=== PATIENT | female | born 1995 | race Caucasian/White ===

== ENCOUNTER 2017-10-19 10:43 | Emergency (ER) | payer OTHER ==
[2017-10-19] MEDS ORDERED: NAPROXEN 375 MG TABLET PO ONE (11:05)
[2017-10-19] MEDS ORDERED: PROCHLORPERAZINE MALEATE 5 MG TABLET PO ONE (11:05)
[2017-10-19] MEDS ORDERED: DIPHENHYDRAMINE HCL 25 MG CAPSULE PO ONE (11:05)
--- NOTE | 2017-10-19 11:08 | ER Document Report ---
ED Medical Screen (RME) - General Chief Complaint: Headache Stated Complaint: BACK NECK PAIN Time Seen by Provider: 10/19/17 10:58 Notes: 22-year-old female patient reports onset about 5 days ago of a mild headache that she noticed developing one afternoon. It has slowly worsened throughout the week. Yesterday her daughter jumped on her back and after that the headache got much worse. She has pain in the upper back shoulders and neck with temporal and forehead discomfort. She took 2 extra strength Tylenol yesterday that helped a little and early this morning when she was awake took 1 and was able to sleep some. She went to an urgent care that did flu testing, testing, and sent her to the emergency room possibly to rule out meningitis. Posterior cervical muscles are quite tender, forehead muscles are little tender. Bilateral trapezius muscles are tender. Putting her chin on her chest causes her back to hurt where her daughter jumped on her and increases the discomfort in the posterior cervical muscles and over the spinous processes. There is no nuchal rigidity. She will be given a dose of Compazine, Benadryl, and Naprosyn while waiting to be seen. I have greeted and performed a rapid initial assessment of this patient. A comprehensive ED assessment and evaluation of the patient, analysis of test results and completion of the medical decision making process will be conducted by additional ED providers. TRAVEL OUTSIDE OF THE [place] IN LAST 30 DAYS: No - Related Data Allergies/Adverse Reactions: peanut Allergy (Verified 10/19/17 10:48) Penicillins Allergy (Verified 10/19/17 10:48) Past Medical History - Social History Chew tobacco use (# tins/day): No Frequency of alcohol use: None Drug Abuse: None Renal/ Medical History: Denies: Hx Peritoneal Dialysis Past Surgical History: Reports: Hx Appendectomy, Hx Cholecystectomy Physical Exam - Vital signs Vitals: Temp Pulse Resp BP Pulse Ox 98.0 F 87 18 121/75 100 10/19/17 10:51 10/19/17 10:51 10/19/17 10:51 10/19/17 10:51 10/19/17 10:51 Course - Vital Signs Vital signs: Temp Pulse Resp BP Pulse Ox 98.0 F 87 18 121/75 100 10/19/17 10:51 10/19/17 10:51 10/19/17 10:51 10/19/17 10:51 10/19/17 10:51
--- NOTE | 2017-10-19 11:19 | ER Document Report ---
ED General - General Chief Complaint: Headache Stated Complaint: BACK NECK PAIN Time Seen by Provider: 10/19/17 10:58 Mode of Arrival: Ambulatory Information source: Patient Notes: Patient presents emergency department with complaints and back neck and head pain. She reports migraine for the past 5 days. Reports past medical history of migraines as a child. Reports she has been taking Tylenol and has relieved some relief but the pain comes back. C/O low back and neck pain but this started after her child jumped on her back. She has been very nauseated.. She went to urgent care before coming to the ED. She had a negative flu test, received zofran IM. TRAVEL OUTSIDE OF THE [place] IN LAST 30 DAYS: No - HPI Onset: Other - 5 weeks Onset/Duration: Persistent Quality of pain: Achy, Pressure Severity: Severe Pain Level: 5 Associated symptoms: Nausea, Vomiting Exacerbated by: Denies Relieved by: Denies Similar symptoms previously: Yes Recently seen / treated by doctor: Yes - Related Data Allergies/Adverse Reactions: peanut Allergy (Verified 10/19/17 10:48) Penicillins Allergy (Verified 10/19/17 10:48) Past Medical History - General Information source: Patient Last Menstrual Period: 10/11/17 - Social History Smoking Status: Never Smoker Cigarette use (# per day): No Chew tobacco use (# tins/day): No Frequency of alcohol use: None Drug Abuse: None Lives with: Family Family History: Reviewed & Not Pertinent Patient has suicidal ideation: No Patient has homicidal ideation: No Pulmonary Medical History: Reports: Hx Asthma - as a child Neurological Medical History: Reports: Hx Migraine - as a child Renal/ Medical History: Denies: Hx Peritoneal Dialysis Past Surgical History: Reports: Hx Appendectomy, Hx Cholecystectomy Review of Systems - Review of Systems Notes: Review HPI for review of systems., All other systems negative Physical Exam - Vital signs Vitals: Temp Pulse Resp BP Pulse Ox 98.0 F 87 18 121/75 100 10/19/17 10:51 10/19/17 10:51 10/19/17 10:51 10/19/17 10:51 10/19/17 10:51 - Notes Notes: PHYSICAL EXAMINATION: GENERAL: Well-appearing and in no acute distress nontoxic looking HEAD: Atraumatic, normocephalic. EYES: Pupils equal round and reactive to light, extraocular movements intact, sclera anicteric, conjunctiva are normal. ENT: nares patent, oropharynx clear without exudates. Moist mucous membranes. NECK: Normal range of motion, supple without lymphadenopathy LUNGS: CTAB and equal. No wheezes rales or rhonchi. HEART: Regular rate and rhythm without murmurs BACK: C/O lower back midline pain, c/o neck sore, turns head side to side, chin to chest without problems. ABDOMEN: Soft, no tenderness. No guarding, no rebound EXTREMITIES: Normal range of motion, no pitting edema. No cyanosis. NEUROLOGICAL: Cranial nerves grossly intact. Normal sensory/motor exams. no weakness, no obvious neuro deficit PSYCH: Normal mood, normal affect. SKIN: Warm, Dry, normal turgor, no rashes or lesions noted Course - Re-evaluation Re-evalutation: 10/19/17 12:37 Patient reports medications that she was given p.o. have helped other symptoms except she has pressure on bilateral temples. She reports nausea is gone. 10/19/17 13:29 Patient reports her headache pressure is almost all the way gone. She says she barely feels it. Reports all other symptoms are gone. Patient was instructed on the importance of follow-up with primary care provider within the next few days. She was also instructed to return here for any concerns. She verbalized understanding tall instructions. Patient is a dependent and does have follow-up. - Vital Signs Vital signs: Temp Pulse Resp BP Pulse Ox 98.0 F 69 16 99/60 L 98 10/19/17 13:47 10/19/17 13:47 10/19/17 13:47 10/19/17 13:47 10/19/17 13:47 Discharge - Discharge Clinical Impression: Nausea, BACK AND NECK PAIN Headache Qualifiers: Headache type: unspecified Headache chronicity pattern: unspecified pattern Intractability: not intractable Qualified Code(s): R51 - Headache Condition: Stable Disposition: HOME, SELF-CARE Instructions: Antinausea Medication ([facility]), Toradol Injection ([facility]) Additional Instructions: *You have been evaluated for a headache, nec/back pain, nausea *Take medication as prescribed for your nausea *Take Ibuprofen as indicated for a headache *Follow up with your primary care provider within 3 days *Return to ED for worsening condition, changes, needs *Return to ED if not better in 24 hours Referrals: KYLE AMBROCIO MD [Primary Care Provider] - Follow up in 3-5 days
[2017-10-19] MEDS ORDERED: KETOROLAC TROMETHAMINE 60 MG/2 ML SDV IM ONE (12:16)
[2017-10-19] MEDS ORDERED: ONDANSETRON ODT 4 MG TAB (6 TAB/ER DISP) PO PRN (13:29)
[2017-10-19 13:49] VITALS: BP 99/60
== END 2017-10-19 13:52 | disposition home or self-care (01) ==
LOC: ER 10:43
DX: R51 Headache (principal); M54.2 Cervicalgia; R11.0 Nausea; Z90.49 Acquired absence of other specified parts of digestive tract; Z88.0 Allergy status to penicillin; Z91.010 Allergy to peanuts
CPT/HCPCS: 99284; 96372; J1885; J3490; S0183

== ENCOUNTER 2018-01-08 11:33 | Emergency (ER) | payer OTHER ==
--- NOTE | 2018-01-08 12:41 | ER Document Report ---
ED Medical Screen (RME) - General Chief Complaint: Back Pain Stated Complaint: BACK PAIN, WEAKNESS Mode of Arrival: Ambulatory Information source: Patient Notes: 22 y.o female presents to the ED with generalized weakness and back pain. Pt reports that she cannot hold herself up when she walks and that she is having trouble picking things up and is shaky. 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 Pt reports that she initially thought she had pulled a muscle but this morning when she woke up her pain had significantly worsened. Pt describes her back pain as a burning. Pt denies any known thyroid issues. She denies any recent changes in weight. She reports that her mother has Graves' disease. Pt's PCP is Kyle Saavedra in [place]. I have greeted and performed a rapid initial assessment of the patient. A comprehensive ED assessment and evaluation of the patient, analysis of test results, and completion of the medical decision making process will be conducted by additional ED providers. PHYSICAL EXAM: Cardiovascular: RRR, no murmur. Respiratory: CTAB Abdominal: No distension. Back: Minor LT CVA tenderness to percussion TRAVEL OUTSIDE OF THE [place] IN LAST 30 DAYS: No - Related Data Allergies/Adverse Reactions: peanut Allergy (Verified 01/08/18 11:36) Penicillins Allergy (Verified 01/08/18 11:36) Past Medical History - Social History Chew tobacco use (# tins/day): No Frequency of alcohol use: None Pulmonary Medical History: Reports: Hx Asthma - as a child Neurological Medical History: Reports: Hx Migraine - as a child Renal/ Medical History: Denies: Hx Peritoneal Dialysis Past Surgical History: Reports: Hx Appendectomy, Hx Cholecystectomy Physical Exam - Vital signs Vitals: Temp Pulse BP Pulse Ox 98.1 F 98 105/67 99 01/08/18 11:38 01/08/18 11:38 01/08/18 11:38 01/08/18 11:38 Course - Vital Signs Vital signs: Temp Pulse Resp BP Pulse Ox 98.1 F 98 105/67 99 01/08/18 11:38 01/08/18 11:38 01/08/18 11:38 01/08/18 11:38 Doctor's Discharge - Discharge Referrals: KYLE AMBROCIO MD [Primary Care Provider] - Follow up as needed Scribe Documentation - Scribe Written by Tyrone:: Tyrone King 01/08/18 1562 acting as scribe for :: Ant
--- NOTE | 2018-01-08 13:20 | ER Document Report ---
ED General - General Chief Complaint: Back Pain Stated Complaint: BACK PAIN, WEAKNESS Time Seen by Provider: 01/08/18 12:36 Mode of Arrival: Ambulatory Information source: Patient Notes: 22-year-old female presents emergency department complaints of generalized weakness, fatigue, back pain. Patient states that she has been having the back pain for the last week. She describes the pain as an aching/burning sensation located in the mid back. Patient states that initially when the pain started she thought she pulled a muscle. She states that she went and saw a chiropractor and had x-rays done. The x-rays were negative. Patient states that the chiropractic work has not been helping with her back pain. She states that she has a history of ureter reflux and is concerned that maybe she has a bladder infection that is spread into the kidneys. Also has a history of kidney stones. Patient says her stones usually present abruptly where as this pain has gradually been worsening. Patient denies any dysuria, hematuria, any increased urgency, increased frequency, vaginal bleeding, vaginal discharge. No numbness, tingling, lower extremity weakness, bowel or bladder incontinence. Patient is able to ambulate despite the pain. She states that she tried to get in with her primary care physician today but they were not open. TRAVEL OUTSIDE OF THE [place] IN LAST 30 DAYS: No - HPI Onset: Other - 2 weeks Onset/Duration: Gradual Quality of pain: Achy, Throbbing Severity: Moderate Associated symptoms: Weakness Exacerbated by: Denies Relieved by: Denies Similar symptoms previously: No Recently seen / treated by doctor: No - Related Data Allergies/Adverse Reactions: peanut Allergy (Verified 01/08/18 11:36) Penicillins Allergy (Verified 01/08/18 11:36) Past Medical History - General Information source: Patient - Social History Smoking Status: Never Smoker Chew tobacco use (# tins/day): No Frequency of alcohol use: None Family History: Reviewed & Not Pertinent Patient has suicidal ideation: No Patient has homicidal ideation: No Pulmonary Medical History: Reports: Hx Asthma - as a child Neurological Medical History: Reports: Hx Migraine - as a child Renal/ Medical History: Denies: Hx Peritoneal Dialysis Past Surgical History: Reports: Hx Appendectomy, Hx Cholecystectomy Review of Systems - Review of Systems Constitutional: Malaise, Weakness EENT: No symptoms reported Cardiovascular: No symptoms reported Respiratory: No symptoms reported Gastrointestinal: No symptoms reported Genitourinary: No symptoms reported Female Genitourinary: No symptoms reported Musculoskeletal: Back pain Skin: No symptoms reported Hematologic/Lymphatic: No symptoms reported Neurological/Psychological: No symptoms reported -: Yes All other systems reviewed and negative Physical Exam - Vital signs Vitals: Temp Pulse BP Pulse Ox 98.1 F 98 105/67 99 01/08/18 11:38 01/08/18 11:38 01/08/18 11:38 01/08/18 11:38 Interpretation: Normal - Notes Notes: PHYSICAL EXAMINATION: GENERAL: Well-appearing, well-nourished and in no acute distress. HEAD: Atraumatic, normocephalic. EYES: Pupils equal round and reactive to light, extraocular movements intact, conjunctiva are normal. ENT: Nares patent, oropharynx clear without exudates. Moist mucous membranes. NECK: Normal range of motion, supple without lymphadenopathy LUNGS: Breath sounds clear to auscultation bilaterally and equal. No wheezes rales or rhonchi. HEART: Regular rate and rhythm without murmurs ABDOMEN: Soft, nontender, nondistended abdomen. No guarding, no rebound. No masses appreciated. Female : deferred Musculoskeletal: Normal range of motion, no pitting or edema. No cyanosis. Bilateral lumbar paraspinal tenderness to palpation. NEUROLOGICAL: Cranial nerves grossly intact. Normal speech, normal gait. Normal sensory, motor exams. PSYCH: Normal mood, normal affect. SKIN: Warm, Dry, normal turgor, no rashes or lesions noted. Course - Re-evaluation Re-evalutation: 01/08/18 13:20 Patient is able to walk, walk on heels, walk on toes, squat in the ED. Denies numbness, tingling, bowel or bladder incontinence. Normal muscle strength 5/5 in the lower extremities. 01/08/18 15:29 Labs and imaging obtained. Labs are unremarkable. UA appears contaminated. Lots of bacteria and squamous cells. No nitrates or leukocyte esterase. CT does not show a stone or signs of pyelonephritis. Patient likely has muscle related symptoms. I will discharge the patient home with prescription for muscle relaxant. Patient told to take the medication as directed, to follow up with her PCP this week, and to return for worsening symptoms. Patient is agreeable with the plan of care. - Vital Signs Vital signs: Temp Pulse Resp BP Pulse Ox 98.1 F 98 105/67 99 01/08/18 11:38 01/08/18 11:38 01/08/18 11:38 01/08/18 11:38 - Laboratory Result Diagrams: 01/08/18 14:05 01/08/18 14:05 Laboratory results interpreted by me: 01/08/18 14:30 Ur Leukocyte Esterase TRACE H Discharge - Discharge Clinical Impression: Lumbar strain Qualifiers: Encounter type: initial encounter Qualified Code(s): S39.012A - Strain of muscle, fascia and tendon of lower back, initial encounter Condition: Good Disposition: HOME, SELF-CARE Instructions: Muscle Strain ([facility]), Low Back Pain ([facility]) Prescriptions: Cyclobenzaprine HCl [Flexeril 10 mg Tablet] 10 mg PO TIDP PRN #15 tab PRN Reason: Referrals: KYLE AMBROCIO MD [Primary Care Provider] - Follow up as needed
[2018-01-08 14:15] LABS: ABSOLUTE BASOPHILS # (AUTO) 0.1 10^3/uL (0.0-0.2); ABSOLUTE EOSINOPHILS # (AUTO) 0.1 10^3/uL (0.0-0.6); ABSOLUTE LYMPHOCYTES (AUTO) 2.1 10^3/uL (0.5-4.7); ABSOLUTE MONOCYTES (AUTO) 0.4 10^3/uL (0.1-1.4); ABSOLUTE NEUT (AUTO) 3.4 10^3/uL (1.7-8.2); BASOPHILS % (AUTO) 0.9 % (0-2); EOSINOPHILS % (AUTO) 0.9 % (0-6); HEMATOCRIT 42.7 % (36.0-47.0); HEMOGLOBIN 14.3 g/dL (12.0-15.5); LYMPHOCYTES % (AUTO) 34.7 % (13-45); MEAN CORPUSCULAR HEMOGLOBIN 29.6 pg (27.0-33.4); MEAN CORPUSCULAR HGB CONC 33.5 g/dL (32.0-36.0); MEAN CORPUSCULAR VOLUME 88 fl (80-97); MONOCYTES % (AUTO) 7.3 % (3-13); PLATELET COUNT 267 10^3/uL (150-450); RED BLOOD COUNT 4.84 10^6/uL (3.72-5.28); RED CELL DISTRIBUTION WIDTH 13.3 % (11.5-14.0); SEGMENTED NEUTROPHILS % (AUTO) 56.2 % (42-78); TOTAL CELLS COUNTED % (AUTO) 100 %
[2018-01-08 14:34] LABS: ALANINE AMINOTRANSFERASE 20 U/L (9-52); ALBUMIN 4.8 g/dL (3.5-5.0); ALKALINE PHOSPHATASE 56 U/L (38-126); ANION GAP 10 (5-19); ASPARTATE AMINO TRANSFERASE 19 U/L (14-36); BILIRUBIN,DIRECT 0.3 mg/dL (0.0-0.4); BILIRUBIN,TOTAL 0.8 mg/dL (0.2-1.3); BLOOD UREA NITROGEN 10 mg/dL (7-20); CALCIUM 9.7 mg/dL (8.4-10.2); CARBON DIOXIDE 26 mmol/L (22-30); CHLORIDE 107 mmol/L (98-107); GLUCOSE 81 mg/dL (75-110); POTASSIUM 4.8 mmol/L (3.6-5.0); SODIUM 143.1 mmol/L (137-145)
[2018-01-08 14:48] LABS: APPEARANCE,URINE SLIGHTLY-CLOUDY; BILIRUBIN,URINE NEGATIVE (NEGATIVE); COLOR,URINE YELLOW; GLUCOSE, URINE NEGATIVE (NEGATIVE); KETONES,URINE NEGATIVE (NEGATIVE); LEUKOCYTE ESTERASE,URINE TRACE (NEGATIVE); NITRITE,URINE NEGATIVE (NEGATIVE); PROTEIN,URINE NEGATIVE (NEGATIVE); URINE SPECIFIC GRAVITY 1.017; UROBILINOGEN,URINE NEGATIVE mg/dL (<2.0)
[2018-01-08 14:50] LABS: FREE T4 (FREE THYROXINE) 0.82 ng/dL (0.78-2.19)
[2018-01-08 15:04] LABS: THYROID STIMULATING HORMONE 1.67 uIU/mL (0.47-4.68)
--- NOTE | 2018-01-08 15:23 | RADIOLOGY REPORT (SQ) ---
EXAM DESCRIPTION: CT ABD/PELVIS NO ORAL OR IV COMPLETED DATE/TIME: 01/08/2018 3:10 pm REASON FOR STUDY: left flank pain COMPARISON: None. TECHNIQUE: CT scan of the abdomen and pelvis performed without intravenous or oral contrast. Images reviewed with lung, soft tissue, and bone windows. Reconstructed coronal and sagittal MPR images revi ewed. All images stored on PACS. All CT scanners at this facility use dose modulation, iterative reconstruction, and/or weight based d osing when appropriate to reduce radiation dose to as low as reasonably achievable (ALARA). [facility]: Dose Right [facility]: CareDose [facility]: Dose Right [facility]: Teradose 4D [facility]: Smart [facility] RADIATION DOSE: CT Rad equipment meets quality standard of care and radiation dose reduction techniq ues were employed. CTDIvol: 4.8 mGy. DLP: 231 mGy-cm.mGy. LIMITATIONS: None. FINDINGS: LOWER CHEST: No significant findings. No nodules or infiltrates. NON-CONTRASTED LIVER, SPLEEN, ADRENALS: Evaluation limited by lack of IV contrast. No identified sign ificant masses. PANCREAS: No masses. No peripancreatic inflammatory changes. GALLBLADDER: Surgically absent. RIGHT KIDNEY AND URETER: No suspicious masses. Assessment limited by lack of IV contrast. No signif icant calcifications. No hydronephrosis or hydroureter. LEFT KIDNEY AND URETER: No suspicious masses. Assessment limited by lack of IV contrast. No signifi cant calcifications. No hydronephrosis or hydroureter. AORTA AND RETROPERITONEUM: No aneurysm. No retroperitoneal masses or adenopathy. BOWEL AND PERITONEAL CAVITY: No obvious masses or inflammatory changes. No free fluid. APPENDIX: Not visualized. PELVIS, BLADDER, AND ABDOMINAL WALL:No abnormal masses. No free fluid. Bladder normal. BONES: No significant findings. OTHER: No other significant finding. IMPRESSION: NO SIGNIFICANT OR ACUTE PROCESS IN THE ABDOMEN OR PELVIS. COMMENT: Quality ID # [id number]: Final reports with documentation of one or more dose reduction techniques (e.g., Automated exposure control, adjustment of the mA and/or kV according to patient size, use of iterative reconstruction technique) TECHNICAL DOCUMENTATION: JOB ID: [id number] [employer]- All Rights Reserved Reading location - IP/workstation name: [email or web address]
[2018-01-08 16:07] VITALS: BP 136/98
== END 2018-01-08 16:08 | disposition home or self-care (01) ==
LOC: ER 11:33
DX: S39.012A Strain of muscle, fascia and tendon of lower back, initial encounter (principal); X58.XXXA Exposure to other specified factors, initial encounter; R53.1 Weakness; R53.83 Other fatigue; M54.9 Dorsalgia, unspecified; Z87.442 Personal history of urinary calculi; Z87.448 Personal history of other diseases of urinary system; Z88.0 Allergy status to penicillin
CPT/HCPCS: 36415; 74176; 80053; 81001; 84439; 84443; 84703; 85025; 99284

== ENCOUNTER 2018-09-02 14:48 | Emergency (ER) | payer OTHER ==
[2018-09-02 15:00] VITALS: BP 115/70
--- NOTE | 2018-09-02 15:23 | ER Document Report ---
ED GI/ - General Chief Complaint: Pelvic Pain Stated Complaint: PELVIC PAIN Time Seen by Provider: 09/02/18 15:09 Primary Care Provider: KYLE AMBROCIO MD [Primary Care Provider] - Follow up as needed Notes: Chief complaint: History of complain:( obtained from----patient) 23 years old female , 7 weeks presents today with abdominal pain cramps with a history of constipation. Denies any vagina discharge or bleeding. Denies any dysuria frequency urgency. Denies any other constitutional symptoms Onset: As above Duration: Last few days Severity: Mild to moderate Quality: Crampy Context: Unknown Exacerbating factor and relieving factors: None REVIEW OF SYSTEMS: CONSTITUTIONAL : Denies fever, chills, or sweats. Denies recent illness. EENT: Denies eye, ear, throat, or mouth pain or symptoms. Denies nasal or sinus congestion or discharge. Denies throat, tongue, or mouth swelling or difficulty swallowing. CARDIOVASCULAR: Denies chest pain. Denies palpitations or racing or irregular heart beat. Denies ankle edema. RESPIRATORY: Denies cough, cold, or chest congestion. Denies shortness of breath, difficulty breathing, or wheezing. GASTROINTESTINAL: Denies distention. Denies nausea, vomiting, or diarrhea. Denies blood in vomitus, stools, or per rectum. Denies black, tarry stools. Denies constipation. GENITOURINARY: Denies difficulty urinating, painful urination, burning, frequency, blood in urine, or discharge. FEMALE GENITOURINARY: Denies vaginal bleeding, heavy or abnormal periods, irregular periods. Denies vaginal discharge or odor. MUSCULOSKELETAL: Denies back or neck pain or stiffness. Denies joint pain or swelling. SKIN: Denies rash, lesions or sores. HEMATOLOGIC : Denies easy bruising or bleeding. LYMPHATIC: Denies swollen, enlarged glands. NEUROLOGICAL: Denies confusion or altered mental status. Denies passing out or loss of consciousness. Denies dizziness or lightheadedness. Denies headache. Denies weakness or paralysis or loss of use of either side. Denies problems with gait or speech. Denies sensory loss, numbness, or tingling. Denies seizures. PSYCHIATRIC: Denies anxiety or stress. Denies depression, suicidal ideation, or homicidal ideation. ALL OTHER SYSTEMS REVIEWED AND NEGATIVE. PHYSICAL EXAMINATION: GENERAL: Well-appearing, well-nourished and in no acute distress. HEAD: Atraumatic, normocephalic. EYES: Pupils equal round and reactive to light, extraocular movements intact, conjunctiva are normal. ENT: Nares patent, oropharynx clear without exudates. Moist mucous membranes. NECK: Normal range of motion, supple without lymphadenopathy LUNGS: Breath sounds clear to auscultation bilaterally and equal. No wheezes rales or rhonchi. HEART: Regular rate and rhythm without murmurs ABDOMEN: Soft, nontender, nondistended abdomen. No guarding, no rebound. No masses appreciated. Examination of genitals-deferred Musculoskeletal: Normal range of motion, no pitting or edema. No cyanosis. NEUROLOGICAL: Cranial nerves grossly intact. Normal speech, normal gait. Normal sensory, motor exams PSYCH: Normal mood, normal affect. SKIN: Warm, Dry, normal turgor, no rashes or lesions noted. Dictation was performed using [employer] voice recognition software TRAVEL OUTSIDE OF THE [place] IN LAST 30 DAYS: No - HPI Notes: 09/02/18 15:22 Dictated - Related Data Allergies/Adverse Reactions: peanut Allergy (Verified 09/02/18 15:06) Penicillins Allergy (Verified 09/02/18 15:06) Past Medical History - General Last Menstrual Period: 07/14/18 - Social History Smoking Status: Never Smoker Chew tobacco use (# tins/day): No Frequency of alcohol use: None Drug Abuse: None Family History: Reviewed & Not Pertinent Patient has suicidal ideation: No Patient has homicidal ideation: No Pulmonary Medical History: Reports: Hx Asthma - as a child Neurological Medical History: Reports: Hx Migraine - as a child Renal/ Medical History: Denies: Hx Peritoneal Dialysis Past Surgical History: Reports: Hx Appendectomy, Hx Cholecystectomy Review of Systems - Review of Systems Notes: Dictated Physical Exam - Vital signs Vitals: Temp Pulse Resp BP Pulse Ox 98.5 F 87 14 115/70 100 09/02/18 15:00 09/02/18 15:00 09/02/18 15:00 09/02/18 15:00 09/02/18 15:00 - Notes Notes: Dictated Course - Vital Signs Vital signs: Temp Pulse Resp BP Pulse Ox 98.5 F 87 14 115/70 100 09/02/18 15:00 09/02/18 15:00 09/02/18 15:00 09/02/18 15:00 09/02/18 15:00 - Laboratory Laboratory results interpreted by me: 09/02/18 15:30 Beta HCG, Quant 10992.00 H - Diagnostic Test Radiology reviewed: Reports reviewed - Living intrauterine of 6 weeks and 1 day. Discharge - Discharge Clinical Impression: Constipation by delayed colonic transit Abdominal pain Qualifiers: Abdominal location: generalized Qualified Code(s): R10.84 - Generalized abdominal pain Qualifiers: Weeks of gestation: less than 8 weeks Qualified Code(s): Z3A.01 - Less than 8 weeks gestation of Condition: Fair Disposition: HOME, SELF-CARE Instructions: Bulk Laxatives, Pelvic Pain in and Round Ligament Pain ([facility]) Referrals: KYLE AMBROCIO MD [Primary Care Provider] - Follow up as needed
[2018-09-02 16:19] LABS: APPEARANCE,URINE CLEAR; BILIRUBIN,URINE NEGATIVE (NEGATIVE); COLOR,URINE STRAW; GLUCOSE, URINE NEGATIVE (NEGATIVE); KETONES,URINE NEGATIVE (NEGATIVE); LEUKOCYTE ESTERASE,URINE NEGATIVE (NEGATIVE); NITRITE,URINE NEGATIVE (NEGATIVE); PROTEIN,URINE NEGATIVE (NEGATIVE); URINE SPECIFIC GRAVITY 1.003; UROBILINOGEN,URINE NEGATIVE mg/dL (<2.0)
--- NOTE | 2018-09-02 16:53 | RADIOLOGY REPORT (SQ) ---
EXAM DESCRIPTION: U/S OB TRANSVAGINAL W/O DOP COMPLETED DATE/TIME: 09/02/2018 4:39 pm REASON FOR STUDY: Abdominal pain and COMPARISON: None. TECHNIQUE: Endovaginal static and realtime grayscale images acquired of the pelvis. Additional selec helio spectral and color Doppler images recorded. All images stored on PACs. bHCG: Not available CLINICAL DATES: Last menses 07/14/2018 LIMITATIONS: None. FINDINGS: FETUS: Single Living intrauterine . ULTRASOUND EGA: 6 weeks 1 day by crown-rump length ULTRASOUND DANNY: 04/27/2019 EFW: Not applicable less than 20 weeks. CRL: 4.2 mm FHR: Embryo cardiac activity seen at real-time scanning SURVEY: Too early to assess. AMNIOTIC FLUID: Adequate amount. PLACENTA: Not yet developed due to early gestation. SUBCHORIONIC BLEED: 3 mm subchorionic hemorrhage SIZE OF BLEED: 3 mm subchorionic hemorrhage UTERUS: No masses. No anomalies. Uterus is 8 x 6 x 4 cm in size CERVICAL LENGTH: 1.9 cm Closed. RIGHT ADNEXA: Normal ovary with normal vascular flow. Right ovary 2.9 x 3.1 x 2.2 cm in size with a 1.7 cm corpus luteum cyst No adnexal free fluid. No adnexal masses. LEFT ADNEXA: Normal ovary with normal vascular flow. Left ovary 2.6 x 1.9 x 1.2 cm in size. No adnexal free fluid. No adnexal masses. FREE FLUID: None. OTHER: No other significant finding. IMPRESSION: LIVING INTRAUTERINE . EGA 6 weeks 1 day Trimester of : First - 0 to 13 weeks. TECHNICAL DOCUMENTATION: JOB ID: [id number]- All Rights Reserved rev Reading location - IP/workstation name: [email or web address]
== END 2018-09-02 17:23 | disposition home or self-care (01) ==
LOC: ER 14:48
DX: O26.91 Pregnancy related conditions, unspecified, first trimester (principal); K59.01 Slow transit constipation; R10.2 Pelvic and perineal pain; R10.84 Generalized abdominal pain; Z3A.01 Less than 8 weeks gestation of pregnancy; Z88.0 Allergy status to penicillin; Z91.010 Allergy to peanuts
CPT/HCPCS: 36415; 76817; 81001; 84702; 99284

== ENCOUNTER 2018-09-07 22:44 | Emergency (ER) | payer OTHER ==
--- NOTE | 2018-09-08 00:18 | ER Document Report ---
ED General - General Chief Complaint: Constipation Stated Complaint: CONSTIPATION Time Seen by Provider: 09/07/18 23:35 Primary Care Provider: KYLE AMBROCIO MD [Primary Care Provider] - Follow up as needed Mode of Arrival: Ambulatory Information source: Patient TRAVEL OUTSIDE OF THE [place] IN LAST 30 DAYS: No - HPI Patient complains to provider of: Constipation Onset: Other - Last BM 9 days ago Onset/Duration: Gradual Quality of pain: Cramping Severity: Mild Pain Level: 1 Context: Early first trimester Associated symptoms: None Exacerbated by: Denies Relieved by: Denies Similar symptoms previously: No Recently seen / treated by doctor: No Notes: Patient is a 23-year-old female coming in today because of no bowel movement for 9 days. She has a long-standing history of of constipation. To make matters more complicated, she is in a first trimester as evidenced by her last visit here. She was not having any related complications. Sounds like she has been doing all of her safe treatments for constipation is not had a bowel movement in 9 days. Her doctor simply told her that she needed to come to the hospital - Related Data Allergies/Adverse Reactions: peanut Allergy (Verified 09/02/18 15:06) Penicillins Allergy (Verified 09/02/18 15:06) Past Medical History - General Information source: Patient - Social History Smoking Status: Never Smoker Chew tobacco use (# tins/day): No Frequency of alcohol use: None Drug Abuse: None Family History: Reviewed & Not Pertinent Patient has suicidal ideation: No Patient has homicidal ideation: No Pulmonary Medical History: Reports: Hx Asthma - as a child Neurological Medical History: Reports: Hx Migraine - as a child Renal/ Medical History: Denies: Hx Peritoneal Dialysis Past Surgical History: Reports: Hx Appendectomy, Hx Cholecystectomy Review of Systems - Review of Systems Notes: Constitutional: No fevers. No chills. EENT: No eye redness. No eye pain. No ear pain. No sore throat. Cardiovascular: No chest pain. No palpitations. Respiratory: No cough. No shortness of breath. No respiratory distress. Gastrointestinal: Positive for constipation. Positive for flatus Genitourinary: Atraumatic. No lesions. No pain. No discharge. Musculoskeletal: Atraumatic. No swelling. No deformities. Skin: No rash or lesions. Lymphatic: No swollen lymph nodes. Neurologic: No headache. No syncope. Psychiatric: No suicidal or homicidal ideation. Physical Exam - Vital signs Vitals: Temp Pulse Resp BP Pulse Ox 99.0 F 79 16 101/66 100 09/07/18 23:18 09/07/18 23:18 09/07/18 23:18 09/07/18 23:18 09/07/18 23:18 - Notes Notes: General: Well-developed, well-nourished. In no acute distress. Non-toxic appearing. Cardiac: Well-perfused. Regular rate and rhythm. No murmurs, rubs, or gallops. Pulmonary: No respiratory distress. No cyanosis. Bilateral lung fiels are clear to auscultation. Abdominal: Non-distended. Non-rigid. Bowel sounds are present in all 4 quadrants. Nontender to palpate. No fullness or tympany. No tinkling sounds. Rectal exam revealed no stool in the vault HEENT: Head is atraumatic. Conjunctivae not reddened. No tearing. PERRL. EOMI. Orbits atraumatic. No periorbital swelling or erythema. Oropharynx is without erythema, swelling, or exudates. Neck: Supple. No adenopathy. No meningismus. Dermatologic: Warm with good turgor. No rash. Atraumatic. Chest: Atraumatic. No chest wall tenderness to palpation. Musculoskeletal: Moves all extremities well. No range of motion deficits. no muscular or joint tenderness. No paraspinal muscle tenderness. no midline spinal tenderness or step-off. Genitourinary: Examination deferred Neurologic: No gross neurologic deficits. Psychiatric: Normal mood. Course - Re-evaluation Re-evalutation: 09/08/18 00:17 Patient does not have any clinical signs or symptoms of bowel obstruction. Her belly exam is benign. She is not have any tenderness. I do not feel a fecal impaction on rectal examination. We will give her encouragement to eat more leafy greens and to continue on her present course of increased exercise and increased water and fiber supplements [id number]. 09/08/18 00:19 She is having some nausea this related to . We will add Reglan. Wondering if this prokinetic might offer some help her constipation as well - Vital Signs Vital signs: Temp Pulse Resp BP Pulse Ox 99.0 F 79 16 101/66 100 09/07/18 23:18 09/07/18 23:18 09/07/18 23:18 09/07/18 23:18 09/07/18 23:18 Discharge - Discharge Clinical Impression: Nausea and vomiting in Constipation Qualifiers: Constipation type: unspecified constipation type Qualified Code(s): K59.00 - Constipation, unspecified Condition: Good Disposition: HOME, SELF-CARE Instructions: Antinausea Medication ([facility]), Constipation ([facility]), Reglan ([facility]) Prescriptions: Metoclopramide HCl [Reglan] 5 mg PO QIDP PRN #20 tablet PRN Reason: Referrals: KYLE AMBROCIO MD [Primary Care Provider] - Follow up tomorrow
[2018-09-08 00:30] VITALS: BP 107/64
== END 2018-09-08 00:30 | disposition home or self-care (01) ==
LOC: ER 22:44
DX: O99.611 Diseases of the digestive system complicating pregnancy, first trimester (principal); K59.00 Constipation, unspecified; O21.9 Vomiting of pregnancy, unspecified; Z3A.00 Weeks of gestation of pregnancy not specified; Z88.0 Allergy status to penicillin; Z91.010 Allergy to peanuts
CPT/HCPCS: 99283

== ENCOUNTER 2019-05-28 15:26 | Emergency (ER) | payer OTHER ==
[2019-05-28] MEDS ORDERED: METHYLPREDNISOLONE INJ 125 MG/2 ML SDV IV ONE (15:44)
[2019-05-28] MEDS ORDERED: NORMAL SALINE 500 ML IV ONE (15:44)
[2019-05-28] MEDS ORDERED: FAMOTIDINE INJ/PF 20 MG/2 ML SDV IV ONE (15:44)
--- NOTE | 2019-05-28 15:49 | ER Document Report ---
ED Medical Screen (RME) - General Stated Complaint: POSSIBLE ALLERGIC REACTION Time Seen by Provider: 05/28/19 15:37 Primary Care Provider: KYLE AMBROCIO MD [Primary Care Provider] - Follow up as needed TRAVEL OUTSIDE OF THE [place] IN LAST 30 DAYS: No - HPI Notes: 05/28/19 15:45 Patient is a 24-year-old female who presents complaining of allergic reaction possibly to the bowel prep that she was taking today. Reaction started a little over an hour ago. Patient states that she had an allergic reaction yesterday at [facility] possibly to the same bowel type of prep and was put in the ICU for monitoring and was discharged this morning. Patient states that she is never needed epinephrine. She did take Benadryl 50 mg an hour ago. Patient states that the Benadryl has helped with the facial flushing. She does have a rash that is started on her chest as well as scratchiness to her throat and lips, but she has not noticed any swelling. She is able to swallow without any difficulties and is breathing normally. She has not noticed any hoarseness. Reviewed with Dr. Carpenter: we will hold off on epi at this time, monitor, use if needed next I have treated and performed a rapid initial assessment of this patient. A comprehensive ED assessment and evaluation of the patient, analysis of test results and completion of medical decision making process will be conducted by additional ED providers. PHYSICAL EXAMINATION: GENERAL: Well-appearing, well-nourished and in no acute distress. A&Ox4. Answers questions appropriately. Mouth/throat: No evidence of angioedema or airway compromise. Lungs: CTAB with clear speech and no hoarseness. No retractions. Skin: There is an erythemic rash noted to her chest. Patient does appear a little flushed in the cheeks. - Related Data Allergies/Adverse Reactions: peanut Allergy (Verified 10/30/18 18:17) Penicillins Allergy (Verified 10/30/18 18:17) Past Medical History Pulmonary Medical History: Reports: Hx Asthma - as a child Neurological Medical History: Reports: Hx Migraine - as a child Renal/ Medical History: Denies: Hx Peritoneal Dialysis Past Surgical History: Reports: Hx Appendectomy, Hx Cholecystectomy Doctor's Discharge - Discharge Referrals: KYLE AMBROCIO MD [Primary Care Provider] - Follow up as needed
[2019-05-28] MEDS ORDERED: DIPHENHYDRAMINE HCL 50 MG/ML VIAL IV ONE (17:02)
--- NOTE | 2019-05-28 17:02 | ER Document Report ---
ED General - General Chief Complaint: Allergic Reaction Stated Complaint: POSSIBLE ALLERGIC REACTION Time Seen by Provider: 05/28/19 15:37 Primary Care Provider: KYLE AMBROCIO MD [Primary Care Provider] - Follow up as needed Mode of Arrival: Ambulatory Information source: Patient, Outside Facility Records Notes: Patient is a 24-year-old female who presents complaining of allergic reaction possibly to the bowel prep that she was taking today. Reaction started a little over an hour ago. Patient states that she had an allergic reaction yesterday at [facility] possibly to the same bowel type of prep and was put in the ICU for monitoring and was discharged this morning. Patient states that she is never needed epinephrine. She did take Benadryl 50 mg an hour ago. Patient states that the Benadryl has helped with the facial flushing. She does have a rash that is started on her chest as well as scratchiness to her throat and lips, but she has not noticed any swelling. She is able to swallow without any difficulties and is breathing normally. She has not noticed any hoarseness. TRAVEL OUTSIDE OF THE [place] IN LAST 30 DAYS: No - HPI Onset: Just prior to arrival Onset/Duration: Sudden Quality of pain: Burning Severity: Mild Associated symptoms: Sore throat. denies: Nonproductive cough, Productive cough, Fever, Headache, Nausea, Vomiting, Shortness of breath Exacerbated by: Denies Relieved by: Denies Similar symptoms previously: Yes Recently seen / treated by doctor: Yes - Related Data Allergies/Adverse Reactions: peanut Allergy (Verified 10/30/18 18:17) Penicillins Allergy (Verified 10/30/18 18:17) Past Medical History - General Information source: Patient, Outside Facility Records - Social History Smoking Status: Never Smoker Frequency of alcohol use: None Drug Abuse: None Lives with: Family, Spouse/Significant other Family History: Reviewed & Not Pertinent Patient has suicidal ideation: No Patient has homicidal ideation: No Pulmonary Medical History: Reports: Hx Asthma - as a child Neurological Medical History: Reports: Hx Migraine - as a child Renal/ Medical History: Denies: Hx Peritoneal Dialysis Past Surgical History: Reports: Hx Appendectomy, Hx Cholecystectomy Review of Systems - Review of Systems Constitutional: denies: Weakness, Recent illness EENT: Throat pain, Difficulty swallowing. denies: Blurred vision Cardiovascular: denies: Chest pain, Palpitations, Dizziness Respiratory: denies: Cough, Short of breath, Stridor, Wheezing Gastrointestinal: Constipation. denies: Nausea, Vomiting Genitourinary: denies: Dysuria Female Genitourinary: No symptoms reported Musculoskeletal: denies: Back pain Skin: Rash Hematologic/Lymphatic: denies: Swollen glands Neurological/Psychological: denies: Lost consciousness, Headaches -: Yes All other systems reviewed and negative Physical Exam - Vital signs Vitals: Temp Pulse BP Pulse Ox 98.8 F 76 149/99 H 100 05/28/19 15:32 05/28/19 15:32 05/28/19 15:32 05/28/19 15:32 - Notes Notes: PHYSICAL EXAMINATION: GENERAL: Well-appearing, well-nourished and in no acute distress. HEAD: Atraumatic, normocephalic. EYES: Pupils equal round and reactive to light, extraocular movements intact, conjunctiva are normal. ENT: Nares patent, oropharynx clear without exudates. Moist mucous membranes. NECK: Normal range of motion, supple without lymphadenopathy LUNGS: Breath sounds clear to auscultation bilaterally and equal. No wheezes rales or rhonchi. HEART: Regular rate and rhythm without murmurs ABDOMEN: Soft, nontender, nondistended abdomen. No guarding, no rebound. No masses appreciated. Female : deferred Musculoskeletal: Normal range of motion, no pitting or edema. No cyanosis. NEUROLOGICAL: Cranial nerves grossly intact. Normal speech, normal gait. Normal sensory, motor exams PSYCH: Anxious SKIN: Warm, Dry, normal turgor, no rashes or lesions noted. Course - Re-evaluation Re-evalutation: 05/28/19 17:02 Patient presents with symptoms consistent with an allergic reaction without anaphylaxis. Only cutaneous involvement with multiple areas of hives. Vitals otherwise within normal limits at time of arrival. No respiratory, GI, cardio vascular, or oral pharyngeal symptoms. A trial of epinephrine for symptom resolution was offered to the patient but patient has declined. Patient was recently discharged from [facility] where she was admitted for severe constipation and underwent fecal disimpaction. Patient was told to complete a course of GoLYTELY but had an allergic reaction in the hospital which required her to stay an extra night. Upon discharge she states she was told to complete the GoLYTELY which she did and then immediately began to feel itchy, warm and have a "scratchy throat". Patient did already administer herself Benadryl. We did administer Pepcid. We did not administer Solu-Medrol because patient states that after she was administered Solu-Medrol her symptoms worsened during her previous admission. Will recommend ongoing antihistamine therapy as an outpatient. At this time will discharge with return precautions and follow-up recommendations. Verbal discharge instructions given a the bedside and opportunity for questions given. Medication warnings reviewed. Patient is in agreement with this plan and has verbalized understanding of return precautions and the need for primary care follow-up in the next 24-72 hours. 05/30/19 17:50 Patient was evaluated and treated as appropriate for the patient's presenting symptoms and complaint, with consideration of any critical or life threatening conditions that may be associated with their obtained history and exam as noted above. All results were discussed with patient and... Patient provided the opportunity to ask questions, and express concerns. Patient was educated on treatments based on their presumed diagnosis as noted above. At this time we will discharge the patient with return precautions and follow-up recommendations. Verbal discharge instructions given a the bedside. Medication warnings reviewed. Patient is in agreement with this plan and has verbalized understanding of return precautions. After careful consideration I feel that that patient can be safely discharged from the emergency department, they were advised to followup with a primary care physician in 2-3 days. Dictation on this chart was performed using voice recognition software and may result in unintended grammatical, spelling, syntax or errors. - Vital Signs Vital signs: Temp Pulse Resp BP Pulse Ox 98.8 F 76 12 123/91 H 100 05/28/19 15:49 05/28/19 15:49 05/28/19 18:25 05/28/19 18:25 05/28/19 18:25 Discharge - Discharge Clinical Impression: Allergic reaction Qualifiers: Encounter type: initial encounter Qualified Code(s): T78.40XA - Allergy, unspecified, initial encounter Condition: Good Disposition: HOME, SELF-CARE Instructions: Acute Allergic Reaction ([facility]) Additional Instructions: Follow up with your [id number] hours for further care or return to the ED IMMEDIATELY if symptoms worsen or you have any concerns. If you cannot afford to follow up with your primary care physician a list of low cost clinics have been provided at the end of your discharge papers as well. Most prescribed medications have multiple side effects. The safest thing to do is when filling your prescription speak to your pharmacist regarding possible interactions with your normal home medications and over the counter medications such as Ibuprofen, Tylenol, Benadryl. If you experience any symptoms that cause you discomfort or concern you should discontinue the medication immediately and return to the emergency room or call your primary care physician. Forms: Elevated Blood Pressure Referrals: KYLE AMBROCIO MD [Primary Care Provider] - Follow up as needed
[2019-05-28 18:37] VITALS: BP 123/91
[2019-05-28] MEDS ORDERED: EPINEPHRINE INJ/PF 1 MG/1 ML AMPULE IM ONE (18:38)
== END 2019-05-28 19:05 | disposition home or self-care (01) ==
LOC: ER 15:26
DX: T78.40XA Allergy, unspecified, initial encounter (principal); L50.9 Urticaria, unspecified; X58.XXXA Exposure to other specified factors, initial encounter; J02.9 Acute pharyngitis, unspecified; R13.10 Dysphagia, unspecified; Z91.010 Allergy to peanuts; K59.00 Constipation, unspecified; Z88.0 Allergy status to penicillin
CPT/HCPCS: 99283; 96361; 96374; 96375; J1200; J7040; S0028

== ENCOUNTER 2019-07-22 23:55 | Emergency (ER) | payer OTHER ==
[2019-07-23 01:20] LABS: A TYPE INFLUENZA AG NEGATIVE (NEGATIVE); B INFLUENZA AG NEGATIVE (NEGATIVE)
[2019-07-23] MEDS ORDERED: LORATADINE 10 MG TABLET PO ONE (03:49)
[2019-07-23] MEDS ORDERED: PSEUDOEPHEDRINE HCL 30 MG TABLET PO ONE (03:49)
[2019-07-23] MEDS ORDERED: GUAIFENESIN 600 MG TABLET.SA PO ONE (03:49)
--- NOTE | 2019-07-23 03:55 | ER Document Report ---
ED Headache - General Chief Complaint: Headache Stated Complaint: WEAKNESS,HEADACHE,NECK PAIN,FEVER Time Seen by Provider: 07/23/19 02:59 Primary Care Provider: KYLE ROMERO MD [Primary Care Provider] - Follow up as needed Mode of Arrival: Ambulatory Information source: Patient Notes: 24-year-old female presented to ED for complaint of headache with intermittent nausea and migraine for a week. She states she has migraine medicine but it makes her nauseated. She states she is taken Tylenol with no relief. She states she has some tenderness to the right side of her neck. Patient has full range of motion of both arms legs and neck. Patient is alert oriented respirations regular nonlabored speaking in full sentences. Patient is tearful intermittently. She does have a history of migraines asthma and anxiety. She states she just had a baby recently and she ended up in the hospital. I offered patient headache cocktail and she states she cannot take that because she has to drive home and she needs to leave pretty soon because she has a small infant at home. I offered her a prescription for Compazine to take with Benadryl and ibuprofen and she states she cannot take ibuprofen because it makes her itch and she cannot take Compazine because she has to stay awake with her . She states she cannot take narcotics because she does not tolerate them very well. States she does have an appointment with Dr. Romero on Saturday. TRAVEL OUTSIDE OF THE [place] IN LAST 30 DAYS: No - HPI Patient complains to provider of: Headache Patient reports: Hx chronic headaches - States she has had headaches most of the last week Onset: Last week Onset was: Gradual Timing: Still present Quality of pain: Sharp, Throbbing Severity: Mild Pain Level: 2 Associated symptoms: Nausea/vomiting, Neck pain, Tingling/numb sensation - Intermittent, Other - Patient also has very swollen nasal turbinates with postnasal drip Exacerbated by: Light, Noise Similar symptoms previously: Yes Recently seen / treated by doctor: Yes - Related Data Allergies/Adverse Reactions: peanut Allergy (Verified 10/30/18 18:17) Penicillins Allergy (Verified 10/30/18 18:17) Home Medications: benadryl q day allergies Past Medical History - General Information source: Patient - Social History Smoking Status: Former Smoker Cigarette use (# per day): No Frequency of alcohol use: None Drug Abuse: None Lives with: Family Family History: Reviewed & Not Pertinent Patient has suicidal ideation: No Patient has homicidal ideation: No - Past Medical History Cardiac Medical History: Reports: None Pulmonary Medical History: Reports: Hx Asthma - as a child EENT Medical History: Reports: None Neurological Medical History: Reports: Hx Migraine - as a child Endocrine Medical History: Reports: None Renal/ Medical History: Reports: None Malignancy Medical History: Reports: None GI Medical History: Reports: Hx Irritable Bowel, Hx Colonoscopy, Hx Endoscopy Musculoskeletal Medical History: Reports None Skin Medical History: Reports None Psychiatric Medical History: Reports: Hx Anxiety Traumatic Medical History: Reports: None Infectious Medical History: Reports: None Past Surgical History: Reports: Hx Appendectomy, Hx Cholecystectomy - Immunizations Immunizations up to date: Yes Review of Systems - Review of Systems Constitutional: No symptoms reported EENT: Blurred vision - Intermittent, Nose congestion, Nose discharge, Sinus discharge Cardiovascular: No symptoms reported Respiratory: No symptoms reported Gastrointestinal: No symptoms reported Genitourinary: No symptoms reported Female Genitourinary: No symptoms reported Musculoskeletal: No symptoms reported Skin: No symptoms reported Hematologic/Lymphatic: No symptoms reported Neurological/Psychological: No symptoms reported Physical Exam - Vital signs Vitals: Temp Pulse Resp BP Pulse Ox 97.7 F 80 16 135/82 H 100 07/23/19 00:35 07/23/19 00:35 07/23/19 00:35 07/23/19 00:35 07/23/19 00:35 Interpretation: Normal - General General appearance: Appears well, Alert - HEENT Head: Normocephalic, Atraumatic Eyes: Normal Pupils: PERRL Ears: Normal External canal: Normal Tympanic membrane: Normal Sinus: Normal Nasal: Swelling, Clear rhinorrhea Mouth/Lips: Normal Pharynx: Normal, Post nasal drainage Neck: Normal - Respiratory Respiratory status: No respiratory distress Chest status: Nontender Breath sounds: Normal Chest palpation: Normal - Cardiovascular Rhythm: Regular Heart sounds: Normal auscultation Murmur: No - Abdominal Inspection: Normal Distension: No distension Bowel sounds: Normal Tenderness: Nontender Organomegaly: No organomegaly - Back Back: Normal, Tender - Right side of neck and upper back no bony tenderness. No: Vertebra tenderness - Extremities General upper extremity: Normal inspection, Nontender, Normal color, Normal ROM, Normal temperature General lower extremity: Normal inspection, Nontender, Normal color, Normal ROM, Normal temperature, Normal weight bearing. 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 Headache was not maximal in onset, patient has no focal neurologic deficits, no nuchal rigidity, vital signs within normal limits, no papilledema, and patient is overall well in appearance. Based on clinical history and examination I do not suspect an acute subarachnoid hemorrhage, dural venous sinus thrombosis, acute meningitis, or intercranial mass. Given my low clinical suspicion for any acute life-threatening etiology, I do not feel advanced neuro imaging or laboratory testing is indicated at this time. Will proceed with headache cocktail and reassess. - Vital Signs Vital signs: Temp Pulse Resp BP Pulse Ox 97.9 F 75 17 129/77 H 100 07/23/19 04:16 07/23/19 04:16 07/23/19 04:16 07/23/19 04:16 07/23/19 04:16 Discharge - Discharge Clinical Impression: Headache Qualifiers: Headache type: unspecified Headache chronicity pattern: unspecified pattern Intractability: not intractable Qualified Code(s): R51 - Headache URI (upper respiratory infection) Qualifiers: URI type: unspecified viral URI Qualified Code(s): J06.9 - Acute upper respiratory infection, unspecified Condition: Stable Disposition: HOME, SELF-CARE Additional Instructions: UPPER RESPIRATORY ILLNESS: You have a viral infection of the respiratory passages -- a "cold." This common infection causes nasal congestion, drainage, and often sore throat and cough. It is highly contagious. The disease usually lasts about 10 to 14 days. There is no "cure" for the viral infection -- it must run its course. If there is a complication, such as bacterial infection in the nose, sinuses, middle ear, or bronchial tubes, antibiotics may be required. The antibiotics won't affect the virus. Drink plenty of fluids. A humidifier may help. An expectorant medication or decongestant may make you more comfortable. Use acetaminophen or ibuprofen for fever or aches. See the doctor if fever persists over two days, if there is any significant worsening of your symptoms, or if you simply fail to improve as expected. You were treated with Claritin 10 mg Sudafed 30 mg and Mucinex 600 mg. These are all hihc-[id number]-[id number] medications for cough cold congestion. You do need to call the go to the pharmacist to get the Sudafed from behind the counter please get a little red pills they are more effective. You could also use Flonase which is [id number] 1 spray each nostril twice a day. You could also use salt soda solution gargles. These will help to remove the drainage from the back your throat. Chloraseptic spray was [id number] that will also help with your sore throat. Salt and soda solution gargle 1 quart of water 1 tablespoon of salt 1 teaspoon of baking soda Mixed 3 ingredients together and boil for 1 minute Placed in a covered quart jar Use 1/2 ounce of cold solution to gargle 3 times a day Headache The physician does not feel that the headache you are experiencing has a serious underlying cause. Most headaches are due to emotional stress, with resultant muscle tension (tension headache). Occasionally, headaches are secondary to changes in the blood vessels of the scalp (vascular headache and migraine headache). Sometimes, a headache is the first symptom of another developing illness, such as a viral infection. You have no evidence of stroke, bleeding, meningitis, or other serious cause of your headache. The treatment of headaches varies with the severity and cause of the pain. Not all headaches need pain shots. In fact, there is evidence that using narcotics for headaches may make them worse in the long run. The physician will determine the therapy that's in your best interest. If you develop a fever, if the headache is different from any you've p reviously experienced, or if the headache progressively worsens, then call your physician at once or go to the emergency room. Acetaminophen Acetaminophen may be taken for pain relief or fever control. It's much safer than aspirin, offering a wider range of "safe" dosages. It is safe during . Some brand names are Tylenol, Panadol, Datril, Anacin 3, Tempra, and Liquiprin. Acetaminophen can be repeated every four hours. The following are maximum recommended dosages: WEIGHT Dose Drops Elixir Chewab le(80mg) (LBS.) drprs=droppers tsp=teaspoon 6 40 mg .4 ml (1/2) 6-11 80 mg .8 ml (full) 1/2 tsp 1 tab 12-16 120 mg 1 1/2 drprs 3/4 tsp 1 1/2 tabs 17-23 160 mg 2 drprs 1 tsp 2 tabs 24-30 240 mg 3 drprs 1 1/2 tsp 3 tabs 30-35 320 mg 2 tsp 4 tabs 36-41 360 mg 2 1/4 tsp 4 1/2 tabs 42-47 400 mg 2 1/2 tsp 5 tabs 48-53 480 mg 3 tsp 6 tabs 54-59 520 mg 3 1/4 tsp 6 1/2 tabs 60-64 560 mg 3 1/2 tsp 7 tabs 65-70 600 mg 3 3/4 tsp 7 1/2 tabs 71-76 640 mg 4 tsp 8 tabs 77-82 720 mg 4 1/2 tsp 9 tabs 83-88 800 mg 5 tsp 10 tabs >89 pounds or adults 650 mg to 900 mg Acetaminophen can be repeated every four hours. Maximum daily dose not to exceed 4000 mg. These maximum recommended dosages are slightly higher than the dosages written on the product container, but these dosages are very safe and well below the toxic dosage for acetaminophen. Antinausea Medication You have been given a medication to suppress nausea and vomiting. This type of medication can be given as a shot, pill, or suppository. It will usually last for many hours. Pills and shots usually last six to eight hours, suppositories last about 12 hours. For the typical illness, only one or two doses of the medication may be necessary. Mild lightheadedness may occur. This type of medicine can cause drowsiness. Do not drive or operate dangerous machinery while under its influence. Do not mix with alcohol. See your doctor at once if you have muscle spasms or tightness, or uncontrollable motions (particularly of the neck, mouth, or jaw). Persistent vomiting or severe lightheadedness should also be evaluated by the physician. Reglan (Metoclopramide) Reglan has been prescribed. This medicine affects the stomach and intestines. It can be used to treat nausea and vomiting, to prevent reflux of stomach acid up into the esophagus, or to increase the contractions of the stomach and intestines. It is often prescribed for esophagitis, and for paralysis of the stomach in diabetics. Reglan can cause either mild restlessness or drowsiness. You should contact the doctor at once if you become extremely restless, anxious, or cannot sleep, or if you develop uncontrollable motions of the lips, tongue, or jaw. Do not take alcohol with this medicine. Do not drive or operate machinery until you have been taking this medicine long enough to know how it affects you. Call the doctor if you develop abdominal pains, lightheadedness, black stool, or blood in the stool or vomitus. Diphenhydramine The use of diphenhydramine (Benadryl) has been recommended to control allergic symptoms. The 25 mg strength is available over- the-counter, as well as the elixir. This antihistamine is used for many symptoms. It's useful for itching, watering eyes and nose, allergic swelling, hives, and insect stings. The medication can be repeated four times daily. Age Elixir (12.5 mg/tsp) 25 mg pill 1 yr 1/4 tsp 2-3 yr 1/2 tsp 4-8 yr 1 tsp 9-14 yr 2 tsp one tab adult 1-2 tabs Antihistamines may cause drowsiness, especially with the first dose. Do not operate machinery or drive while under the effects of the medication. Do not combine the medication with alcohol, or with any other medication without talking to your doctor. FOLLOW-UP CARE: If you have been referred to a physician for follow-up care, call the physicians office for an appointment as you were instructed or within the next two days. If you experience worsening or a significant change in your symptoms, notify the physician immediately or return to the Emergency Department at any time for re-evaluation. Prescriptions: Metoclopramide HCl [Reglan 10 mg Tablet] 10 mg PO Q6HP PRN #14 tablet PRN Reason: Ondansetron [Zofran Odt 4 mg Tablet] 1 tab PO Q6H #15 tab.rapdis Forms: Elevated Blood Pressure Referrals: KYLE ROMERO MD [Primary Care Provider] - Follow up as needed
[2019-07-23 04:16] VITALS: BP 129/77
== END 2019-07-23 04:17 | disposition home or self-care (01) ==
LOC: ER 23:55
DX: J06.9 Acute upper respiratory infection, unspecified (principal); R51 Headache; R53.1 Weakness; M54.2 Cervicalgia; R50.9 Fever, unspecified; R11.2 Nausea with vomiting, unspecified; H53.8 Other visual disturbances; Z88.0 Allergy status to penicillin; Z91.010 Allergy to peanuts
CPT/HCPCS: 87070; 87077; 87804; 87880; 99283

== ENCOUNTER 2020-02-21 18:05 | Emergency (ER) | payer OTHER ==
--- NOTE | 2020-02-21 19:56 | ER Document Report ---
ED Medical Screen (RME) - General Chief Complaint: Allergic Reaction Stated Complaint: POSSIBLE ALLERGIC REACTION Time Seen by Provider: 02/21/20 19:51 Primary Care Provider: KYLE AMBROCIO MD [Primary Care Provider] - Follow up as needed Mode of Arrival: Ambulatory Information source: Patient Notes: 24-year-old female presents to ED for complaint of allergic reaction. She states she ate a quesadilla and a taco about 1730. She started she broke out with a rash pretty soon after that and has been difficult to swallow. She does have a hoarse voice. She states she took Benadryl and Zyrtec and it seemed to get a little better but now the symptoms have come back again. She is hoarse at this time. 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 Patient does not have any swelling to the lips tongue or throat but she states she is having some trouble swallowing and her voice is very raspy. She states she does not smoke drink or use any illicit drug and her last menstrual cycle was February 05. She was in the ICU 10 days ago for a episode of her mast cell activation syndrome and is working off of a steroid Dosepak and she took 10 mg of predni sone today. I have greeted and performed a rapid initial assessment of this patient. A comprehensive ED assessment and evaluation of the patient, analysis of test results and completion of medical decision making process will be conducted by an additional ED providers. TRAVEL OUTSIDE OF THE [place] IN LAST 30 DAYS: No - Related Data Allergies/Adverse Reactions: peanut Allergy (Verified 10/30/18 18:17) Penicillins Allergy (Verified 10/30/18 18:17) Past Medical History Pulmonary Medical History: Reports: Hx Asthma - as a child Neurological Medical History: Reports: Hx Migraine - as a child Renal/ Medical History: Denies: Hx Peritoneal Dialysis GI Medical History: Reports: Hx Irritable Bowel, Hx Colonoscopy, Hx Endoscopy Psychiatric Medical History: Reports: Hx Anxiety Past Surgical History: Reports: Hx Appendectomy, Hx Cholecystectomy - Immunizations Immunizations up to date: Yes Physical Exam - Vital signs Vitals: Temp Pulse Resp BP Pulse Ox 98.4 F 123 H 20 154/99 H 100 02/21/20 18:12 02/21/20 18:12 02/21/20 18:12 02/21/20 18:12 02/21/20 18:12 Course - Vital Signs Vital signs: Temp Pulse Resp BP Pulse Ox 98.4 F 123 H 20 154/99 H 100 02/21/20 18:12 02/21/20 18:12 02/21/20 18:12 02/21/20 18:12 02/21/20 18:12 Doctor's Discharge - Discharge Referrals: KYLE AMBROCIO MD [Primary Care Provider] - Follow up as needed
--- NOTE | 2020-02-21 20:00 | ER Document Report ---
ED Allergic Reaction - General Chief Complaint: Allergic Reaction Stated Complaint: POSSIBLE ALLERGIC REACTION Time Seen by Provider: 02/21/20 19:51 Primary Care Provider: KYLE AMBROCIO MD [Primary Care Provider] - Follow up as needed Mode of Arrival: Ambulatory TRAVEL OUTSIDE OF THE [place] IN LAST 30 DAYS: No - HPI Notes: 24-year-old female presents with concerns for allergic reaction. Patient states she has been diagnosed with mast cell activation syndrome. She has had multiple ICU stays, recently discharged from [facility] ICU 10 days ago. She reports that she always takes Benadryl and Zyrtec before eating. However tonight she ate a quesadilla and had symptoms of allergic reaction. She had rash, face and tongue swelling, and some trouble swallowing. She reports that she did have some improvement in her symptoms, however now they have returned. She reports that breathing pedroza she is doing okay, she does not have any shortness of breath. She states that for severe reactions she will feel an amped up adrenaline feeling, she currently is not feeling like that now. Her main complaint is that she is having some trouble swallowing. She reports she has been intubated in the past. She also states that she did not take her EpiPen, states that her allergy doctor told her only to use the EpiPen if her airway is closing as there is concern she might develop an allergy to epi. - Related Data Allergies/Adverse Reactions: peanut Allergy (Verified 10/30/18 18:17) Penicillins Allergy (Verified 10/30/18 18:17) Past Medical History - General Information source: Patient - Social History Smoking Status: Never Smoker Chew tobacco use (# tins/day): No Frequency of alcohol use: None Family History: Reviewed & Not Pertinent Patient has homicidal ideation: No Pulmonary Medical History: Reports: Hx Asthma - as a child Neurological Medical History: Reports: Hx Migraine - as a child Renal/ Medical History: Denies: Hx Peritoneal Dialysis GI Medical History: Reports: Hx Irritable Bowel, Hx Colonoscopy, Hx Endoscopy Psychiatric Medical History: Reports: Hx Anxiety Past Surgical History: Reports: Hx Appendectomy, Hx Cholecystectomy - Immunizations Immunizations up to date: Yes Review of Systems - Review of Systems Constitutional: No symptoms reported EENT: Difficulty swallowing Cardiovascular: denies: Chest pain Respiratory: denies: Short of breath Gastrointestinal: denies: Abdominal pain, Diarrhea, Vomiting Genitourinary: No symptoms reported Female Genitourinary: No symptoms reported Musculoskeletal: denies: Muscle pain Skin: Rash Hematologic/Lymphatic: See HPI Neurological/Psychological: No symptoms reported Physical Exam - Vital signs Vitals: Temp Pulse Resp BP Pulse Ox 98.4 F 123 H 20 154/99 H 100 02/21/20 18:12 02/21/20 18:12 02/21/20 18:12 02/21/20 18:12 02/21/20 18:12 Interpretation: Normal - General General appearance: Appears well, Alert In distress: None - HEENT Head: Normocephalic, Atraumatic Eyes: Normal Extraocular movements intact: Yes Pupils: PERRL Nasal: No: Swelling Mouth/Lips: No: Angioedema Mucous membranes: Normal, Moist Pharynx: No: Erythema, Uvular edema Neck: Supple - Respiratory Respiratory status: No respiratory distress Breath sounds: Normal. No: Wheezing - Cardiovascular Rhythm: Regular Heart sounds: Normal auscultation - Abdominal Bowel sounds: Normal Tenderness: Nontender - Extremities General upper extremity: Normal ROM General lower extremity: Normal ROM - Neurological Neuro grossly intact: Yes Cognition: Normal Orientation: AAOx4 - Psychological Associated symptoms: Anxious - Skin Skin Temperature: Warm Skin Moisture: Dry Course - Re-evaluation Re-evalutation: 02/21/20 20:15 24-year-old female presents with allergic reaction in setting of diagnosis of mast cell activation syndrome. She currently is well appearing, she has no facial swelling, she has no tongue swelling, she has no obvious airway edema. She is phonating with somewhat of a hoarse voice. There is no stridor. Her lungs are clear. She reports allergies to multiple medications, and would like to avoid epi-pen at this time. She states she is okay with taking Solu-Medrol and Benadryl, I have ordered these medications. Will re-assess. 02/21/20 22:02 In to reassess patient. She reports that her throat is feeling better. Her voice is no longer hoarse. She states that she is having some nausea, however it is not that bad, she is hesitant to try Zofran. She also states that she is cold. I discussed trying Toradol, she says she is not able to take this medication. I offered patient admission, she states she is not sure yet at this time if she needs to be admitted, we will reassess this. 02/22/20 00:23 Reassessed patient. She reports that she would like to be discharged home now. She remains well-appearing with no obvious swelling/edema. Return precautions given, stable at time of discharge. - Vital Signs Vital signs: Temp Pulse Resp BP Pulse Ox 98.4 F 108 H 13 135/85 H 95 02/21/20 18:12 02/22/20 00:37 02/22/20 00:37 02/22/20 00:37 02/22/20 00:37 Discharge - Discharge Clinical Impression: Allergic condition Condition: Stable Disposition: HOME, SELF-CARE Referrals: KYLE AMBROCIO MD [Primary Care Provider] - Follow up as needed
[2020-02-21] MEDS ORDERED: DIPHENHYDRAMINE HCL 50 MG/ML VIAL IV ONE (20:05)
[2020-02-21] MEDS ORDERED: METHYLPREDNISOLONE INJ 125 MG/2 ML SDV IV ONE (20:06)
[2020-02-22] MEDS ORDERED: DIPHENHYDRAMINE HCL 50 MG/ML VIAL IV ONE (00:06)
[2020-02-22 00:38] VITALS: BP 135/85
== END 2020-02-22 00:38 | disposition home or self-care (01) ==
LOC: ER 18:05
DX: T78.40XA Allergy, unspecified, initial encounter (principal); R21 Rash and other nonspecific skin eruption; R22.0 Localized swelling, mass and lump, head; R13.10 Dysphagia, unspecified; Z79.899 Other long term (current) drug therapy; Z88.0 Allergy status to penicillin
CPT/HCPCS: 99284; 96374; 96375; J1200; J2930